=== PATIENT | male | born 2005 | race Two or more races ===

== ENCOUNTER 2023-03-03 17:38 | Emergency (ER) | payer OTHER ==
[~2023-03-03] VITALS: Ht 172.7 cm; Wt 81.6 kg
[2023-03-03 18:09] VITALS: TEMP 98.2
[2023-03-03 18:39] VITALS: BP 135/73; O2SAT 97
== END 2023-03-03 18:39 ==
LOC: ER 17:38
DX: Z02.89 Encounter for other administrative examinations (principal); Y04.0XXA Assault by unarmed brawl or fight, initial encounter; Y93.89 Activity, other specified; Y92.89 Other specified places as the place of occurrence of the external cause; Y99.8 Other external cause status